=== PATIENT | male | born 1965 | race Caucasian/White ===

== ENCOUNTER 2022-06-19 16:26 | Inpatient (IN) ==
[2022-06-19] MEDS ORDERED: Ipratropium/Albuterol Neb 3 ML IH ONE (17:38)
[2022-06-19] MEDS ORDERED: Iopamidol - 370 500 ML MLS IVP ONE (17:39)
[2022-06-19] MEDS ORDERED: methylPREDNISolone 125 MG/2 ML VIAL IVP ONE (17:43)
[2022-06-19] MEDS ORDERED: Cefepime HCl 2,000 MG in 0.9 % Sodium Chloride 10 ML IVP ONE (17:43)
[2022-06-19 18:00] LABS: Basophils # 0.1 K/mcL (0.0-0.2); Basophils % 0.6 %; Eosinophils # 0.1 K/mcL (0.0-0.6); Eosinophils % 1.5 %; Hematocrit 43.5 % (37.5-50.1); Immature Granulocytes % 1.7 % (0-4); Lymphocytes # 0.5 K/mcL (0.6-4.6); Lymphocytes % 6.7 %; Mean Corpuscular HGB Conc 32.2 g/dL (31.6-35.5); Mean Corpuscular Hemoglobin 28.9 pg (28.0-33.3); Mean Corpuscular Volume 89.9 fL (83.0-100.0); Monocytes # 0.9 K/mcL (0.0-1.3); Monocytes % 11.7 %; Platelet Count 509 K/mcL (140-400); Red Blood Count 4.84 M/mcL (4.19-5.50); Red Cell Distribution Width 13.7 % (11.5-14.5); Segmented Neutrophils % 77.8 %; White Blood Count 7.8 K/mcL (4.3-11.1)
[2022-06-19 18:08] LABS: INR 1.1; Prothrombin Time 12.8 Seconds (9.4-12.1)
[2022-06-19 18:10] LABS: Activated Partial Thrombo Time 29.8 Seconds (26.0-36.0)
[2022-06-19 18:42] LABS: Alanine Aminotransferase 28 Units/L (7-52); Albumin/Globulin Ratio 1.2 (1.1-2.2); Alkaline Phosphatase 125 Units/L (34-104); Aspartate Amino Transferase 26 Units/L (13-39); BUN/Creatinine Ratio 26 (6-26); Bilirubin,Indirect 0.2 mg/dL (0.0-1.0); Bilirubin,Total 0.2 mg/dL (0.3-1.0); Blood Urea Nitrogen 16 mg/dL (6-20); Calcium 8.8 mg/dL (8.6-10.3); Carbon Dioxide 23 mEq/L (23-29); Chloride 103 mEq/L (98-107); Globulin 3.3 g/dL (2.4-3.5); Glucose 147 mg/dL (70-105); Lipase 24 Units/L (11-82); Magnesium 2.1 mg/dL (1.6-2.6); Osmolality,Calculated 284 (280-300); Phosphorous 3.4 mg/dL (2.7-4.5); Potassium 4.4 mEq/L (3.5-5.1); Sodium 135 mEq/L (136-145); Total Protein 7.3 g/dL (6.4-8.9); Troponin I < 0.03 ng/mL (< 0.04)
[2022-06-19 18:51] LABS: Bilirubin,Urine Negative (Negative); Blood,Urine Negative (Negative); Clarity,Urine Clear (Clear); Color,Urine Light-Yellow (Yellow); Glucose,Urine (UA) 30 mg/dL (Normal); Ketones,Urine Negative (Negative); Leukocyte Esterase,Urine Negative (Negative); Nitrite,Urine Negative (Negative); Protein,Urine Trace mg/dL (Neg-Trace); RBC,Urine 0-3 per hpf (0-3); Specific Gravity,Urine > 1.030 (1.010-1.025); Urobilinogen,Urine Normal (Normal); WBC,Urine 0-3 per hpf (0-3)
[2022-06-19] MEDS ORDERED: Furosemide 20 MG/2 ML VIAL IVP ONE (19:45)
[2022-06-19] MEDS ORDERED: Nicotine 21 MG PATCH.TD24 TD ONE (19:52)
[2022-06-19] MEDS ORDERED: Naloxone 0.4 MG/ML INJ IVP PRN (20:10)
[2022-06-19] MEDS ORDERED: Ondansetron 4 MG/2 ML VIAL IVP PRN (20:10)
[2022-06-19] MEDS ORDERED: Melatonin 3 MG TABLET PO PRN (20:10)
[2022-06-19] MEDS ORDERED: Acetaminophen 325 MG TABLET PO PRN (20:10)
[2022-06-19] MEDS ORDERED: *HR* Dextrose 50 % in Water (Syg) 50 ML SYRINGE IVP PRN (20:20)
[2022-06-19] MEDS ORDERED: D5% in Water 1,000 ML IVC PRN (20:20)
[2022-06-19] MEDS ORDERED: Dextrose Gel 15 GM/37.5 ML TUBE PO PRN ×2 (20:20)
[2022-06-19] MEDS ORDERED: *HR* HYDROcodone/Acet 5/325 mg TABLET PO PRN (21:30)
[2022-06-19] MEDS ORDERED: Vancomycin 1,750 MG in 0.9 % Sodium Chloride 250 ML IVPB SCH (22:00)
[2022-06-19] MEDS: Cefepime HCl 2,000 MG in 0.9 % Sodium Chloride 10 ML IVP SCH (23:13)
[2022-06-20] MEDS ORDERED: Ipratropium/Albuterol Neb 3 ML IH PRN (00:11)
[2022-06-20 01:13] LABS: Basophils % 0.3 %; Hematocrit 40.4 % (37.5-50.1); Hemoglobin 12.7 g/dL (12.9-16.9); Immature Granulocytes % 1.1 % (0-4); Lymphocytes # 0.2 K/mcL (0.6-4.6); Lymphocytes % 3.2 %; Mean Corpuscular HGB Conc 31.4 g/dL (31.6-35.5); Mean Corpuscular Hemoglobin 28.4 pg (28.0-33.3); Mean Corpuscular Volume 90.4 fL (83.0-100.0); Mean Platelet Volume 8.9 fL (9.4-12.4); Monocytes # 0.1 K/mcL (0.0-1.3); Monocytes % 1.8 %; Neutrophils # 6.7 K/mcL (1.6-8.9); Platelet Count 500 K/mcL (140-400); Red Blood Count 4.47 M/mcL (4.19-5.50); Red Cell Distribution Width 13.7 % (11.5-14.5); Segmented Neutrophils % 93.6 %; White Blood Count 7.2 K/mcL (4.3-11.1)
[2022-06-20 01:24] LABS: INR 1.2; Prothrombin Time 13.7 Seconds (9.4-12.1)
[2022-06-20 01:30] LABS: BUN/Creatinine Ratio 21 (6-26); Blood Urea Nitrogen 15 mg/dL (6-20); Calcium 8.6 mg/dL (8.6-10.3); Carbon Dioxide 28 mEq/L (23-29); Chloride 101 mEq/L (98-107); Glucose 245 mg/dL (70-105); Osmolality,Calculated 293 (280-300); Potassium 4.1 mEq/L (3.5-5.1); Sodium 137 mEq/L (136-145); Total Protein 6.9 g/dL (6.4-8.9)
[2022-06-20] MEDS ORDERED: Saline Nasal Spray 44 ML BOTTLE NS PRN (04:48)
[2022-06-20] MEDS ORDERED: Saliva Stimulant 44.3ml BOTTLE PO PRN (04:48)
[2022-06-20] MEDS ORDERED: *HR* Enoxaparin 40 MG/0.4 ML SYRINGE SQ SCH (06:00)
[2022-06-20] MEDS: Budesonide/Formoterol 160/4.5 1 PUFF INH IH SCH ×2 (08:03→19:57)
[2022-06-20] MEDS ORDERED: Artificial Tears SOLN 15 ML BOTTLE BOTH EYES SCH (09:00)
[2022-06-20] MEDS ORDERED: Lactobacillus 1 EACH CAP.SPRINK PO SCH (09:00)
[2022-06-20] MEDS ORDERED: Chlorhexidine Rinse 15 ML MOUTHWASH MM SCH (09:00)
[2022-06-20] MEDS: Nicotine 21 MG PATCH.TD24 TD SCH (10:23)
[2022-06-20] MEDS: Cefepime HCl 2,000 MG in 0.9 % Sodium Chloride 10 ML IVP SCH ×2 (10:24→18:13)
[2022-06-20] MEDS: predniSONE 20 MG TABLET PO SCH (10:24)
[2022-06-20] MEDS: amLODIPine 5 MG TABLET PO SCH (10:24)
[2022-06-20] MEDS: MetroNIDAZOLE 500 MG/100 ML 500 MG/100 ML BAG IVPB SCH ×2 (10:25→18:14)
[2022-06-20] MEDS ORDERED: Vancomycin 1,750 MG/517.5 ML IV.SOLN IVPB SCH (11:00)
[2022-06-20 13:22] LABS: Total Protein,Pleural Fluid 4.6 g/dL
[2022-06-20 13:29] LABS: Appearance of Pleural Fl Clear (Clear)
[2022-06-20 13:31] LABS: RBC,Pleural Fluid < 2000 RBC/mcL
[2022-06-20 13:36] LABS: Lactate Dehydrogenase 100 Units/L (140-271); Total Protein 4.5 g/dL (6.4-8.9)
[2022-06-20 15:14] LABS: Eosinophils,Pleural Fluid 0 %
[2022-06-20 15:15] LABS: Monocytes,Pleural Fluid 0 %
[2022-06-20] MEDS ORDERED: allopurinoL 300 MG TABLET PO SCH (18:00)
[2022-06-20] MEDS: Vancomycin 1,750 MG/517.5 ML IV.SOLN IVPB SCH (20:25)
[2022-06-21] MEDS: Cefepime HCl 2,000 MG in 0.9 % Sodium Chloride 10 ML IVP SCH ×2 (01:01→09:45)
[2022-06-21] MEDS: MetroNIDAZOLE 500 MG/100 ML 500 MG/100 ML BAG IVPB SCH ×2 (01:02→09:44)
[2022-06-21 01:55] LABS: Basophils % 0.2 %; Eosinophils % 0.3 %; Hematocrit 39.9 % (37.5-50.1); Hemoglobin 12.4 g/dL (12.9-16.9); Immature Granulocytes % 0.6 % (0-4); Lymphocytes # 0.7 K/mcL (0.6-4.6); Lymphocytes % 8.1 %; Mean Corpuscular HGB Conc 31.1 g/dL (31.6-35.5); Mean Corpuscular Hemoglobin 28.7 pg (28.0-33.3); Mean Corpuscular Volume 92.4 fL (83.0-100.0); Mean Platelet Volume 9.2 fL (9.4-12.4); Monocytes # 0.7 K/mcL (0.0-1.3); Monocytes % 7.6 %; Neutrophils # 7.4 K/mcL (1.6-8.9); Platelet Count 453 K/mcL (140-400); Red Blood Count 4.32 M/mcL (4.19-5.50); Red Cell Distribution Width 13.5 % (11.5-14.5); Segmented Neutrophils % 83.2 %; White Blood Count 8.9 K/mcL (4.3-11.1)
[2022-06-21 02:13] LABS: BUN/Creatinine Ratio 35 (6-26); Blood Urea Nitrogen 25 mg/dL (6-20); Calcium 8.7 mg/dL (8.6-10.3); Carbon Dioxide 32 mEq/L (23-29); Chloride 99 mEq/L (98-107); Glucose 130 mg/dL (70-105); Lactate Dehydrogenase 128 Units/L (140-271); Osmolality,Calculated 292 (280-300); Sodium 138 mEq/L (136-145)
[2022-06-21] MEDS: Vancomycin 1,750 MG/517.5 ML IV.SOLN IVPB SCH (06:36)
[2022-06-21 06:38] VITALS: BP 151/92; PULSE 102; TEMP 98.1
[2022-06-21] MEDS: Budesonide/Formoterol 160/4.5 1 PUFF INH IH SCH (07:24)
[2022-06-21] MEDS: Nicotine 21 MG PATCH.TD24 TD SCH (09:44)
[2022-06-21] MEDS: amLODIPine 5 MG TABLET PO SCH (09:45)
[2022-06-21] MEDS: predniSONE 20 MG TABLET PO SCH (09:45)
[2022-06-21 10:44] VITALS: O2SAT 93
[2022-06-22 15:46] LABS: Fluid Source for Cholesterol PLEURAL FLUID
[2022-06-23 11:30] LABS: Cholesterol,Body Fluid 102 mg/dL
== END 2022-06-21 12:56 | disposition home or self-care (01) | DRG 720 ==
LOC: EMEROOARM 16:26 → 2NENU 16:26 → SUATTDRO 20:00 → 2NENU 20:58
PROVIDERS: ADMIT Internal Medicine; ATTEND Internal Medicine